=== PATIENT | male | born 1970 | race Hispanic/Latino ===

== ENCOUNTER → 2024-01-19 | Outpatient (CLI) | payer OTHER | END | disposition home or self-care (01) | LOC: SHCH 14:46 | PROVIDERS: ATTEND Student in an Organized Health Care Education/Training Program | DX: I87.2 Venous insufficiency (chronic) (peripheral) (principal); R60.9 Edema, unspecified | CPT/HCPCS: 93970 ==

== ENCOUNTER 2024-06-11 06:28 | Day surgery (SDC) | payer OTHER, BC ==
[2024-06-07 11:14] LABS: BASOPHILS # (AUTO) 0.07 K/uL (0.00-0.20); BASOPHILS % (AUTO) 0.5 % (0.0-5.0); EOSINOPHILS % (AUTO) 2.3 % (0.0-8.0); HEMATOCRIT 47.4 % (42-54); IMMATURE GRANULOCYTE ABSOLUTE 0.05 K/uL (0-1); LYMPHOCYTES % (AUTO) 15.5 % (21.0-51.0); MEAN CORPUSCULAR HEMOGLOBIN 31.1 pg (27.0-33.0); MEAN CORPUSCULAR HGB CONC 33.5 g/dL (32.0-36.0); MEAN CORPUSCULAR VOLUME 92.6 fL (79-99); NEUTROPHILS # (AUTO) 9.4 K/uL (1.8-7.7); NEUTROPHILS % (AUTO) 73.3 % (40.0-77.0); PLATELET COUNT (AUTO) 303 K/uL (130-400); RED BLOOD CELL COUNT(AUTO) 5.12 MIL/uL (4.50-6.20); RED CELL DISTRIBUTION WIDTH 13.3 % (11.0-15.5); WHITE BLOOD COUNT (AUTO) 12.9 K/uL (4.8-10.8)
[2024-06-07 11:19] LABS: POTASSIUM 3.4 mmol/L (3.5-5.1)
[2024-06-07 11:20] LABS: INR 0.99 (0.85-1.15); PROTHROMBIN TIME 10.5 SEC (9.6-11.6)
[2024-06-07 11:22] LABS: PARTIAL THROMBOPLASTIN TIME 28.1 SEC (26.3-35.5)
--- NOTE | 2024-06-07 11:26 | EKG ---
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
[2024-06-07 12:01] VITALS: BP 139/74; PULSE 91; RESP 19; TEMP 97.2
--- NOTE | 2024-06-08 10:23 | NUR ---
RE: LABS REPORTED CBC RESULTS TO MINA HENDERSON. (PATIENT ASYMPTOMATIC). RECEIVED ORDERS FOR REPEAT CBC ON DAY OF PROCEDURE, WELL UA/CXR ON DAY OF PROCEDURE.
[2024-06-11] VITALS (8 sets, daily range): BP systolic 112–145; BP diastolic 65–92; PULSE 66–87; RESP 11–19; TEMP 97–97.3
[~2024-06-11] VITALS: Ht 182.9 cm; Wt 188.3 kg
[~2024-06-11 06:28] MED LIST: ASPI-1443 PO; ATOR40TA71 PO; BENA40TA92 PO; EMPA25TA PO; HYDR25TA PO; INSLAN SQ; INSU200I SQ; LORA10TA7 PO; METF-446 PO; TIRZ5PEN SQ
[2024-06-11 06:53] LABS: BASOPHILS # (AUTO) 0.09 K/uL (0.00-0.20); BASOPHILS % (AUTO) 0.7 % (0.0-5.0); EOSINOPHILS # (AUTO) 0.48 K/uL (0.00-0.70); EOSINOPHILS % (AUTO) 3.9 % (0.0-8.0); HEMATOCRIT 47.5 % (42-54); IMMATURE GRANULOCYTE ABSOLUTE 0.05 K/uL (0-1); LYMPHOCYTES # (AUTO) 2.3 K/uL (1.0-4.8); LYMPHOCYTES % (AUTO) 18.9 % (21.0-51.0); MEAN CORPUSCULAR HEMOGLOBIN 30.8 pg (27.0-33.0); MEAN CORPUSCULAR HGB CONC 32.8 g/dL (32.0-36.0); MEAN CORPUSCULAR VOLUME 93.7 fL (79-99); MONOCYTES # (AUTO) 0.9 K/uL (0.1-1.0); MONOCYTES % (AUTO) 7.5 % (3.0-13.0); NEUTROPHILS # (AUTO) 8.4 K/uL (1.8-7.7); NEUTROPHILS % (AUTO) 68.6 % (40.0-77.0); PLATELET COUNT (AUTO) 265 K/uL (130-400); RED BLOOD CELL COUNT(AUTO) 5.07 MIL/uL (4.50-6.20); RED CELL DISTRIBUTION WIDTH 13.8 % (11.0-15.5); WHITE BLOOD COUNT (AUTO) 12.2 K/uL (4.8-10.8)
[2024-06-11 07:03] LABS: ADD UA MICROSCOPIC YES
[2024-06-11 07:10] LABS: APPEARANCE,URINE CLEAR (CLEAR); BACTERIA,URINE RARE /HPF (None Seen); BILIRUBIN,URINE NEGATIVE (NEGATIVE); COLOR,URINE COLORLESS (YELLOW); GLUCOSE, URINE (UA) >=1000 mg/dL (NEGATIVE); KETONES,URINE 5 mg/dL (NEGATIVE); LEUKOCYTE ESTERASE ,URINE NEGATIVE Leu/uL (NEGATIVE); MUCUS,URINE RARE LPF (None Seen); NITRATE,URINE NEGATIVE (NEGATIVE); OCCULT BLOOD,URINE NEGATIVE (NEGATIVE); PROTEIN,URINE NEGATIVE (NEGATIVE); RBC,URINE 0-1 /HPF (0-1); SQUAMOUS EPITHELIAL CELL,UR RARE /HPF (0-2); UROBILINOGEN,URINE 0.2 mg/dL (0.2-1.0); WBC,URINE 0-1 /HPF (0-1)
[2024-06-11] MEDS: 0.9%NACL 1000ML 1,000 ML IV SCH (07:21)
[2024-06-11] MEDS ORDERED: NITROGLYCERIN 50MG VIAL ONE (08:55)
[2024-06-11] MEDS ORDERED: LIDOCAINE HCL 400MG/20ML VIAL ONE (08:55)
[2024-06-11] MEDS ORDERED: IODIXANOL 320 MG/ML 100 ML VIAL ONE (08:55)
[2024-06-11] MEDS ORDERED: HEParin-NS 1,000 UNIT/500 ML 1,000 ML IV ONE (08:56)
[2024-06-11] MEDS ORDERED: HEParin 10,000 UNIT/10ML (1,000 UNIT/ML) VIAL ONE (08:56)
[2024-06-11] MEDS ORDERED: FENTanyl CITRate PF 50 MCG/1 ML 2ML VIAL ONE (09:21)
[2024-06-11] MEDS ORDERED: MIDAZOLAM HCL 1 MG/ML 2ML VIAL ONE (09:21)
--- NOTE | 2024-06-11 09:29 | HMCIMG ---
Exam Type: CHEST 1VW Clinical Information: ELEVATED WBC'S Comparison: None Findings: The lungs are clear of infiltrates. The heart is normal in size. The bony and soft tissue structures of the chest are unremarkable. Impression: Clear lungs.
[2024-06-11] MEDS ORDERED: ASPIRIN 81MG CHEW TAB ONE (10:18)
[2024-06-11] MEDS ORDERED: cloPIDOgrel 300MG TAB ONE (10:18)
--- NOTE | 2024-06-11 10:22 | PRN ---
Procedure Note INDICATION FOR PROCEDURE: [] Iliac vein compression PROCEDURE: [] Conscious sedation Left common femoral vein sheath placement Bilateral intravascular ultrasound of IVC common iliac external iliac common femoral veins Left common femoral venogram Primary stent placement to left common iliac and external iliac vein with the use of a 16 mm x 150 mm Medtronic venous self expanding stent DATE OF PROCEDURE: June 11, 2024 [employer] MANAGER: Micheal Post MD, F.A.C.C. PROCEDURE NOTE: [] Patient was brought to catheterization suite and prepped and draped in sterile fashion. An IV was started if not already in place and both groins were exposed for venous access. 2% lidocaine was used for local anesthesia and then a micro puncture kit was used to gain access and once free flow blood was seen modified Seldinger technique was utilized to place a 9 [place] sheath in the left common femoral vein. Next a venogram was performed. Next a Glidewire was placed in the IVC and then an IVUS catheter was then used to interrogate the IVC left common iliac external iliac and common femoral vein with findings as described below. Next the Omni flush catheter was then used to direct the Glidewire to the right common femoral vein under fluoroscopic guidance. Next the Omni flush catheter was removed an IVUS catheter was then placed over wire and interrogation intravascular javed was done of the right common femoral vein external iliac and common iliac vein. Measurements are described as below. After diagnostic study was performed as felt intervention should be done to left common iliac and external iliac vein patient was given 5000 units of heparin. Next a Glidewire was placed in the IVC. Next intravascular ultrasound was reintroduced and measurements were obtained with landmarks made. Next a 16 mm x 150 mm Medtronic venous self expanding stent was then placed into the left common iliac and external iliac vein covering areas of compression. Intravascular ultrasound was then used to interrogate left iliac system post stent placement. At end of case Vascade closure system was utilized and no complications occurred. FINDINGS: [] Left common iliac vein compression 53% Left external iliac vein compression 63% Right external iliac vein compression 40.6% Right common femoral vein compression 61% Successful stent placement to left common iliac and external iliac vein with the use of a 16 mm x 150 mm Medtronic venous self expanding stent PLAN: [] Dual antiplatelet therapy concomitantly for 30 days Clopidogrel therapy for 90 days No heavy lifting 5 lb or greater for 3 days No driving for 24 hours Recommend aggressive risk factor modification and weight loss before consideration of intervention done to right lower extremity. MICHEAL POST MD Jun 11, 2024 10:22
[2024-06-11] MEDS ORDERED: GLUCAGON 1MG KIT 1 MG ML IM PRN (10:30)
[2024-06-11] MEDS ORDERED: acetaMINOPHEN WITH coDEINE 1 TAB TAB PO PRN (10:30)
[2024-06-11] MEDS ORDERED: DEXTROSE 50%-WATER 50 ML DISP.SYRIN IV PRN (10:30)
[2024-06-11] MEDS ORDERED: INSULIN humuLIN R 100 UNIT/ML 3ML SQ SCH (11:30)
--- NOTE | 2024-06-11 12:30 | NUR ---
URINARY: VOIDED 875 CC CLEAR YELLOW COLOR URINE PER URINAL WITHOUT DIFFICULTY.
== END 2024-06-11 13:15 | disposition home or self-care (01) ==
LOC: DAH 06:28
PROVIDERS: ATTEND Internal Medicine Cardiovascular Disease
DX: I87.1 Compression of vein (principal); I87.2 Venous insufficiency (chronic) (peripheral); I10 Essential (primary) hypertension; E78.5 Hyperlipidemia, unspecified; E11.8 Type 2 diabetes mellitus with unspecified complications; I49.1 Atrial premature depolarization; I73.9 Peripheral vascular disease, unspecified; Z79.899 Other long term (current) drug therapy; E66.01 Morbid (severe) obesity due to excess calories; Z68.43 Body mass index [BMI] 50.0-59.9, adult; Z79.84 Long term (current) use of oral hypoglycemic drugs; Z79.82 Long term (current) use of aspirin; Z79.01 Long term (current) use of anticoagulants
CPT/HCPCS: 80048; 85025 ×2; 85610; 85730; 36415 ×2; 93005; 37238; 36012; 75822; 37252; 37253 ×5; 82948 ×2; 81001; 71045; C1876; C1769 ×2; C1894 ×2; C1760; C1753; J3010; J3490 ×2; J7030; J1644 ×2; J2250; Q9967; A4215; A4222; A4221; A4663; A4216; A4606; A4223 ×3; 99156; 99157